=== PATIENT | male | born 1965 | race Caucasian/White ===

== ENCOUNTER 2020-08-30 16:15 | Emergency (ER) | payer MEDICAID ==
[~2020-08-30] VITALS: Ht 172.7 cm; Wt 68.2 kg
[2020-08-30 16:27] VITALS: BP 117/68; Ht 172.7 cm; Wt 68.2 kg
[2020-08-30] MEDS ORDERED: MUSCLE RELAXER (16:29)
[2020-08-30 16:48] LABS: BASOPHILS 0.2 % (0-2); EOSINOPHILS 0.4 % (0-7); HEMATOCRIT 46.6 % (42.0-54.0); HEMOGLOBIN 15.9 g/dL (13.5-17.5); IMMATURE GRANULOCYTES 0.1 % (0-5); LYMPHOCYTES 25.1 % (15-50); MCH 32.3 pg (26.0-34.0); MCHC 34.1 g/dL (31.0-37.0); MCV 94.5 fL (80.0-100.0); MEAN PLATELET VOLUME 8.9 fL (7.4-10.4); MONOCYTES 4.6 % (2-11); NEUTROPHILS 69.6 % (40-80); PLATELET COUNT 252 10x3/uL (130-400); RBC 4.93 10x6/uL (4.20-6.10); RDW 13.7 % (11.5-14.5); WBC 9.5 10x3/uL (4.8-10.8)
[2020-08-30 17:03] LABS: CALC OSMOLALITY 272 mosm/kg (275-300); CALCIUM 8.6 mg/dL (8.5-10.1); CARBON DIOXIDE 25.4 mmol/L (21.0-32.0); CHLORIDE - SERUM 105 mmol/L (98-107); CREATININE - SERUM 0.8 mg/dL (0.6-1.3); GLUCOSE 93 mg/dL (74-106); SODIUM 137 mmol/L (136-145); UREA NITROGEN 9 mg/dL (7-18); eGFR NON AFRICAN AMERICAN > 90 mL/min (90-120)
[2020-08-30 17:12] LABS: ALBUMIN 3.6 g/dL (3.4-5.0); ALKALINE PHOSPHATASE 74 U/L (30-120); ALT (SGPT) 26 U/L (10-68); AMYLASE - SERUM 45 U/L (25-115); BILIRUBIN - TOTAL 0.61 mg/dL (0.2-1.3); LIPASE 119 U/L (73-393); PROTEIN - SERUM 7.1 g/dL (6.4-8.2)
[2020-08-30 17:16] LABS: TROPONIN-I < 0.017 ng/mL (0.000-0.060)
[2020-08-30 17:44] LABS: BILIRUBIN NEGATIVE (NEGATIVE); KETONE NEGATIVE (NEGATIVE); NITRITE NEGATIVE (NEGATIVE); UROBILINOGEN NORMAL mg/dL (< 2)
[2020-08-30 17:45] LABS: WHITE CELLS - URINE RARE HPF (0-1)
[2020-08-30] MEDS ORDERED: DICLOFENAC SODI50 MG PO (18:00)
[2020-08-30] MEDS ORDERED: BACLOFEN10 MG PO (18:00)
== END 2020-08-30 18:40 | disposition home or self-care (01) ==
LOC: D.ER 16:15
PROVIDERS: Family Medicine
DX: R31.9 Hematuria, unspecified (principal); R10.9 Unspecified abdominal pain; M79.18 Myalgia, other site; N28.1 Cyst of kidney, acquired; F17.210 Nicotine dependence, cigarettes, uncomplicated; Z85.038 Personal history of other malignant neoplasm of large intestine